=== PATIENT | male | born 1935 | race Caucasian/White ===

== ENCOUNTER 2016-10-29 12:18 | Inpatient (IN) | payer OTHER ==
[~2016-10-29] VITALS: Ht 177.8 cm; Wt 74.5 kg
[~2016-10-29 12:18] MED LIST: ATORVASTATIN CA20 MG PO; AUGMENTIN875 MG PO; CO Q-10100 MG PO; COMBIVENT RESPIM4 GM IH; DALIRESP500 MCG PO; DUONEB 2.5-0.5 M3 ML IH; ECOTRIN325 MG PO; Ecotrin PO; HCTZ PO; IBUPROFEN400 MG PO; IMDUR120 MG PO; IRBESARTAN300 MG PO; ISOSORBIDE MONO60 MG PO; LEVAQUIN500 MG PO; LEVAQUIN750 MG PO; LIPITOR20 MG PO; LISINOPRIL PO; LISINOPRIL40 MG PO; LITE COAT ASPI325 M1 PO; LOPRESSOR50 MG PO; METOPROLOL TART50 MG PO; NITROSTAT0.4 MG SL; PLAVIX75 MG PO; PREDNISONE20 MG PO; PROAIR HFA8.5 GM IH; PROVENTIL,2.5 MG/3 M IH; SPIRIVA1 INHALATI IH; TRAMADOL HCL50 MG PO; Tessalon Perle PO; VIBRAMYCIN100 M2 PO; ZOCOR80 MG PO; Zocor PO
[2016-10-29 13:21] LABS: BASOPHIL COUNT 0.1 K/uL (0-0.1); EOSINOPHIL (%) 18.8 % (0-5); EOSINOPHIL COUNT 1.5 K/uL (0-0.3); HEMATOCRIT 41.5 % (38.0-50.0); IMMATURE GRANULOCYTE (%) 0.3 % (0.0-0.7); INSTRUMENT ABS NEUTROPHIL CT 3.6 K/uL; LYMPHOCYTE COUNT 1.9 K/uL (1.0-2.8); MCHC 31.8 G/DL (30.0-36.0); MCV 87.9 FL (86-99); MEAN PLAT.VOLUME 10.7 uM^3 (9.0-12.4); MONOCYTE COUNT 0.6 K/uL (0-0.8); NEUTROPHIL (%) 46.2 % (45-76); NEUTROPHIL COUNT 3.6 K/uL (1.8-6.4); PLATELET COUNT 163 K/uL (156-360); RBC DIS.WIDTH-CV 15.3 % (11.8-14.6); RBC DIS.WIDTH-SD 49.9 % (39-53); RED BLOOD COUNT 4.72 M/uL (4.00-5.50); WHITE BLOOD COUNT 7.8 K/uL (4.1-10.2)
[2016-10-29 13:32] LABS: CHLORIDE 104 mEq/L (99-109); POTASSIUM 4.5 mEq/L (3.7-5.4); SODIUM 139 mEq/L (136-147)
[2016-10-29 13:34] LABS: GLUCOSE 103 mg/dL (70-99)
[2016-10-29 13:35] LABS: ANION GAP 9 MEQ/L (2-14)
[2016-10-29 13:36] LABS: TOTAL BILIRUBIN 0.4 mg/dL (0.0-1.0)
[2016-10-29 13:37] LABS: ALKALINE PHOSPHATASE 73 IU/L (3-129); GFR ESTIMATE (CALCULATED) 56 mL/min/
[2016-10-29 13:39] LABS: UREA NITROGEN (BUN) 14 mg/dL (9-23)
[2016-10-29 13:45] LABS: TROP-I INTERPRETATION NEGATIVE; TROPONIN-I < 0.01 ng/mL (0.0-0.30)
[2016-10-29 14:19] LABS: INFLUENZA A VIRAL ANTIGEN NEGATIVE; INFLUENZA B VIRAL ANTIGEN NEGATIVE
[2016-10-29] MEDS ORDERED: DUONEB 2.5-0.5 M3 ML AEROSOL (14:19)
[2016-10-29] MEDS ORDERED: BENZONATATE200 MG PO (14:21)
[2016-10-29 17:44] VITALS: BP 160/93
[2016-10-29 20:00] VITALS: BP 136/68
[2016-10-29 21:03] LABS: TROP-I INTERPRETATION NEGATIVE; TROPONIN-I < 0.01 ng/mL (0.0-0.30)
[2016-10-30] VITALS (8 sets, daily range): BP systolic 121–142; BP diastolic 58–79
[2016-10-30 04:30] LABS: HEMATOCRIT 38.9 % (38.0-50.0); MCH 28.2 PG (29.0-34.0); MCHC 32.6 G/DL (30.0-36.0); MCV 86.4 FL (86-99); MEAN PLAT.VOLUME 10.9 uM^3 (9.0-12.4); PLATELET COUNT 153 K/uL (156-360); RBC DIS.WIDTH-CV 15.1 % (11.8-14.6); RBC DIS.WIDTH-SD 48.7 % (39-53); WHITE BLOOD COUNT 6.7 K/uL (4.1-10.2)
[2016-10-30 04:41] LABS: CHLORIDE 101 mEq/L (99-109); POTASSIUM 4.5 mEq/L (3.7-5.4); SODIUM 135 mEq/L (136-147)
[2016-10-30 04:44] LABS: ANION GAP 10 MEQ/L (2-14)
[2016-10-30 04:47] LABS: GFR ESTIMATE (CALCULATED) 56 mL/min/
[2016-10-30 04:50] LABS: GLUCOSE 168 mg/dL (70-99); UREA NITROGEN (BUN) 23 mg/dL (9-23)
[2016-10-30 04:55] LABS: TROP-I INTERPRETATION NEGATIVE; TROPONIN-I < 0.01 ng/mL (0.0-0.30)
[2016-10-30 13:01] LABS: TROP-I INTERPRETATION NEGATIVE; TROPONIN-I 0.01 ng/mL (0.0-0.30)
[2016-10-31 04:22] VITALS: BP 141/69
[2016-10-31 08:00] VITALS: BP 151/71
[2016-10-31 12:00] VITALS: BP 139/68
[2016-10-31 16:00] VITALS: BP 134/63
[2016-10-31 19:56] VITALS: BP 128/61
[2016-10-31 23:25] VITALS: BP 146/68
[2016-11-01 03:33] VITALS: BP 153/70
[2016-11-01 07:17] VITALS: BP 135/69
[2016-11-01 11:21] VITALS: BP 161/70
[2016-11-01 15:19] VITALS: BP 159/73
[2016-11-01 19:45] VITALS: BP 157/72
[2016-11-01 23:28] VITALS: BP 154/74
[2016-11-02 03:26] VITALS: BP 139/71
[2016-11-02 07:21] VITALS: BP 139/71
[2016-11-02 11:12] VITALS: BP 130/63
[2016-11-02 15:09] VITALS: BP 134/65
[2016-11-02 19:41] VITALS: BP 140/66
[2016-11-02 23:40] VITALS: BP 146/71
[2016-11-03 03:57] VITALS: BP 162/83
[2016-11-03 07:03] VITALS: BP 179/83
[2016-11-03 11:05] VITALS: BP 127/60
[2016-11-03 15:01] VITALS: BP 127/60
[2016-11-03 19:38] VITALS: BP 149/81
[2016-11-03 23:22] VITALS: BP 128/60
[2016-11-04] VITALS (7 sets, daily range): BP systolic 120–186; BP diastolic 56–86
[2016-11-05 03:47] VITALS: BP 153/78
[2016-11-05] MEDS ORDERED: PREDNISONE20 MG PO (07:39)
[2016-11-05 08:06] VITALS: BP 166/81
== END 2016-11-05 09:47 | disposition home or self-care (01) | DRG 191 ==
LOC: EME 12:18 → EDOF 15:22 → 4SOUTH 15:22
PROVIDERS: Emergency Medicine; Internal Medicine
DX: J44.1 Chronic obstructive pulmonary disease with (acute) exacerbation (principal); I25.739 Atherosclerosis of nonautologous biological coronary artery bypass graft(s) with unspecified angina pectoris; R09.02 Hypoxemia; G89.29 Other chronic pain; I10 Essential (primary) hypertension; I48.2 Chronic atrial fibrillation; F17.210 Nicotine dependence, cigarettes, uncomplicated; I89.8 Other specified noninfective disorders of lymphatic vessels and lymph nodes; E78.5 Hyperlipidemia, unspecified; I44.7 Left bundle-branch block, unspecified; I70.0 Atherosclerosis of aorta; J98.4 Other disorders of lung; I25.10 Atherosclerotic heart disease of native coronary artery without angina pectoris; C61 Malignant neoplasm of prostate; Z79.02 Long term (current) use of antithrombotics/antiplatelets; Z95.2 Presence of prosthetic heart valve; Z95.5 Presence of coronary angioplasty implant and graft; Z79.01 Long term (current) use of anticoagulants; Z82.49 Family history of ischemic heart disease and other diseases of the circulatory system; Z83.3 Family history of diabetes mellitus
CPT/HCPCS: 71020; 80048; 80053; 83880; 84484; 85025; 85027; 87502; 93005; 94640; 94640 76; 94799; 99202; 99281; 99285; J1650; J2930; J7512

== ENCOUNTER 2016-11-17 15:27 | Inpatient (IN) | payer OTHER ==
[~2016-11-17] VITALS: Ht 177.8 cm; Wt 75.4 kg
[~2016-11-17 15:27] MED LIST changes: +BENZONATATE200 MG PO; +DUONEB 2.5-0.5 M3 ML AEROSOL
[2016-11-17 16:27] LABS: EOSINOPHIL (%) 2.2 % (0-5); EOSINOPHIL COUNT 0.2 K/uL (0-0.3); HEMATOCRIT 35.7 % (38.0-50.0); IMMATURE GRANULOCYTE (%) 0.4 % (0.0-0.7); INSTRUMENT ABS NEUTROPHIL CT 7.4 K/uL; LYMPHOCYTE COUNT 1.1 K/uL (1.0-2.8); MCH 29.1 PG (29.0-34.0); MCHC 32.5 G/DL (30.0-36.0); MCV 89.5 FL (86-99); MEAN PLAT.VOLUME 10.5 uM^3 (9.0-12.4); MONOCYTE (%) 10.7 % (3-12); NEUTROPHIL (%) 75.6 % (45-76); NEUTROPHIL COUNT 7.4 K/uL (1.8-6.4); PLATELET COUNT 147 K/uL (156-360); RBC DIS.WIDTH-CV 15.4 % (11.8-14.6); RBC DIS.WIDTH-SD 51.8 % (39-53); RED BLOOD COUNT 3.99 M/uL (4.00-5.50); WHITE BLOOD COUNT 9.7 K/uL (4.1-10.2)
[2016-11-17 16:34] LABS: CHLORIDE 102 mEq/L (99-109); POTASSIUM 4.8 mEq/L (3.7-5.4); SODIUM 136 mEq/L (136-147)
[2016-11-17 16:36] LABS: GLUCOSE 100 mg/dL (70-99)
[2016-11-17 16:37] LABS: ANION GAP 11 MEQ/L (2-14)
[2016-11-17 16:38] LABS: TOTAL BILIRUBIN 0.7 mg/dL (0.0-1.0)
[2016-11-17 16:40] LABS: ALKALINE PHOSPHATASE 65 IU/L (3-129); GFR ESTIMATE (CALCULATED) 48 mL/min/
[2016-11-17 16:41] LABS: UREA NITROGEN (BUN) 18 mg/dL (9-23)
[2016-11-17 16:43] LABS: LIPASE 16 U/L (1.0-51.0)
[2016-11-17 16:49] LABS: TROP-I INTERPRETATION NEGATIVE; TROPONIN-I 0.08 ng/mL (0.0-0.30)
[2016-11-17 20:29] VITALS: BP 140/61
[2016-11-17 23:20] VITALS: BP 125/63
[2016-11-17 23:42] LABS: TROP-I INTERPRETATION NEGATIVE; TROPONIN-I 0.05 ng/mL (0.0-0.30)
[2016-11-17 23:56] LABS: GLOBULINS 2.7 G/DL (2.3-3.5)
[2016-11-18 03:10] VITALS: BP 105/56
[2016-11-18 06:57] LABS: TROP-I INTERPRETATION NEGATIVE; TROPONIN-I 0.04 ng/mL (0.0-0.30)
[2016-11-18 07:25] LABS: EOSINOPHIL (%) 0 % (0-5); HEMATOCRIT 34.7 % (38.0-50.0); IMMATURE GRANULOCYTE (%) 0.5 % (0.0-0.7); LYMPHOCYTE COUNT 0.4 K/uL (1.0-2.8); MCH 28.4 PG (29.0-34.0); MCHC 32.3 G/DL (30.0-36.0); MCV 88.1 FL (86-99); MEAN PLAT.VOLUME 10.8 uM^3 (9.0-12.4); MONOCYTE (%) 1.1 % (3-12); MONOCYTE COUNT 0.1 K/uL (0-0.8); NEUTROPHIL (%) 91.7 % (45-76); PLATELET COUNT 141 K/uL (156-360); RBC DIS.WIDTH-CV 14.9 % (11.8-14.6); RBC DIS.WIDTH-SD 48.6 % (39-53); RED BLOOD COUNT 3.94 M/uL (4.00-5.50)
[2016-11-18 07:27] LABS: WHITE BLOOD COUNT 6.5 K/uL (4.1-10.2)
[2016-11-18 07:32] LABS: ALKALINE PHOSPHATASE 65 IU/L (3-129); ANION GAP 9 MEQ/L (2-14); CHLORIDE 100 MEQ/L (99-109); GFR ESTIMATE (CALCULATED) 56 mL/min/; POTASSIUM 4.6 MEQ/L (3.7-5.4); SAMPLE HEMOLYSIS CHECK 0; SAMPLE ICTERIC CHECK 0; SAMPLE LIPEMIA CHECK 0; SODIUM 133 MEQ/L (136-147); TOTAL BILIRUBIN 0.5 MG/DL (0.0-1.0); UREA NITROGEN (BUN) 21 mg/dL (9-23)
[2016-11-18 07:35] VITALS: BP 150/70
[2016-11-18 07:37] LABS: GLUCOSE 234 mg/dL (70-99)
[2016-11-18 09:55] LABS: LYME DISEASE SEROLOGY SCREEN NEGATIVE (NEGATIVE); TREPONEMA ANTIBODY NEGATIVE (NEGATIVE)
[2016-11-18 11:15] VITALS: BP 142/69
[2016-11-18 11:41] LABS: ANTI-NUCLEAR AB SCRN/RFLX(ANA) NONREACTIVE (NONREACTIVE)
[2016-11-18 15:40] VITALS: BP 127/66
[2016-11-18 19:34] VITALS: BP 130/70
[2016-11-19 00:23] VITALS: BP 143/70
[2016-11-19 07:28] VITALS: BP 168/74
[2016-11-19 07:44] LABS: ANION GAP 9 MEQ/L (2-14); CHLORIDE 103 MEQ/L (99-109); GFR ESTIMATE (CALCULATED) > 59 mL/min/; GLUCOSE 141 mg/dL (70-99); POTASSIUM 4.8 MEQ/L (3.7-5.4); SAMPLE HEMOLYSIS CHECK 0; SAMPLE ICTERIC CHECK 0; SAMPLE LIPEMIA CHECK 0; SODIUM 136 MEQ/L (136-147); UREA NITROGEN (BUN) 26 mg/dL (9-23)
[2016-11-19 10:06] LABS: INTERNAL CONTROL VALID? YES
[2016-11-19 13:12] LABS: ALBUMIN 3.09 G/DL (3.6-4.9); ALBUMIN PERCENT 52.3 %; ALPHA-1 PERCENT 5.1 %; ALPHA-2 GLOBULIN 0.89 G/DL (0.45-0.85); ALPHA-2 PERCENT 15.1 %; BETA PERCENT 11.7 %; GAMMA PERCENT 15.8 %; SERUM GEL NO. 62-3
[2016-11-19 15:51] VITALS: BP 159/74
[2016-11-19 19:39] VITALS: BP 139/67
[2016-11-20 00:02] VITALS: BP 136/63
[2016-11-20 04:19] VITALS: BP 141/76
[2016-11-20] MEDS ORDERED: LEVOFLOXACIN750 MG PO (07:43)
[2016-11-20] MEDS ORDERED: PREDNISONE20 MG PO (07:45)
[2016-11-20 08:00] VITALS: BP 171/88
[2016-11-20 11:42] VITALS: BP 155/74
== END 2016-11-20 14:30 | disposition home or self-care (01) | DRG 190 ==
LOC: EME 15:27 → EDOF 19:07 → 2EAST 19:07 → EDOF 19:07 → 2EAST 20:24
PROVIDERS: Emergency Medicine; Internal Medicine
DX: J44.1 Chronic obstructive pulmonary disease with (acute) exacerbation (principal); J44.0 Chronic obstructive pulmonary disease with (acute) lower respiratory infection; J18.9 Pneumonia, unspecified organism; N17.9 Acute kidney failure, unspecified; I12.9 Hypertensive chronic kidney disease with stage 1 through stage 4 chronic kidney disease, or unspecified chronic kidney disease; N18.9 Chronic kidney disease, unspecified; I25.118 Atherosclerotic heart disease of native coronary artery with other forms of angina pectoris; E78.00 Pure hypercholesterolemia, unspecified; I44.7 Left bundle-branch block, unspecified; E78.5 Hyperlipidemia, unspecified; G62.9 Polyneuropathy, unspecified; D64.9 Anemia, unspecified; R91.1 Solitary pulmonary nodule; Z95.2 Presence of prosthetic heart valve; Z95.1 Presence of aortocoronary bypass graft; Z85.46 Personal history of malignant neoplasm of prostate; Z87.891 Personal history of nicotine dependence
CPT/HCPCS: 71010; 71020; 80048; 80053; 82607; 82728; 83690; 83880; 84165; 84425 90; 84443; 84484; 85025; 85651; 86038; 86618; 86780; 87070; 87205; 87449; 93005; 94640; 94640 76; 94799; 99202; 99281; 99285; G0378; G8978 GP CI; G8979 GP CI; G8980 GP CI; J1644; J1956; J2930; J7030; J7512

== ENCOUNTER 2017-04-23 21:32 | Inpatient (IN) | payer OTHER ==
[~2017-04-23] VITALS: Ht 177.8 cm; Wt 70.5 kg
[~2017-04-23 21:32] MED LIST changes: +LEVOFLOXACIN750 MG PO
[2017-04-23 22:03] LABS: HEMATOCRIT 40.2 % (38.0-50.0); MCH 28.8 PG (29.0-34.0); MCHC 33.6 G/DL (30.0-36.0); MCV 85.9 FL (86-99); MEAN PLAT.VOLUME 11.1 uM^3 (9.0-12.4); PLATELET COUNT 123 K/uL (156-360); RBC DIS.WIDTH-CV 15.2 % (11.8-14.6); RBC DIS.WIDTH-SD 48.3 % (39-53); RED BLOOD COUNT 4.68 M/uL (4.00-5.50); WHITE BLOOD COUNT 6.8 K/uL (4.1-10.2)
[2017-04-23 22:08] LABS: CHLORIDE 105 mEq/L (99-109)
[2017-04-23 22:09] LABS: SODIUM 141 mEq/L (136-147)
[2017-04-23 22:10] LABS: GLUCOSE 115 mg/dL (70-99)
[2017-04-23 22:12] LABS: ANION GAP 11 MEQ/L (2-14)
[2017-04-23 22:14] LABS: GFR ESTIMATE (CALCULATED) 52 mL/min/
[2017-04-23 22:15] LABS: UREA NITROGEN (BUN) 19 mg/dL (9-23)
[2017-04-23 22:20] LABS: TROP-I INTERPRETATION NEGATIVE; TROPONIN-I 0.04 ng/mL (0.0-0.30)
[2017-04-23 23:41] LABS: BASE EXCESS 0.5 mEq/L (-3 to +3); BICARBONATE 28.4 mEq/L (22-26); CARBOXY HGB 2.4 % (0-5); PCO2 59 mm Hg (35-45); PO2 67 mm Hg (80-100)
[2017-04-23 23:42] LABS: COMMENTS - BLOOD GASES C+; DEVICE NC; O2 FLOW 2 L/MIN; SITE RR; TOTAL RESP RATE 20 resp/min; pH 7.29 (7.35-7.45)
[2017-04-24 01:52] LABS: BASE EXCESS 0 mEq/L (-3 to +3); BICARBONATE 28.9 mEq/L (22-26); CARBOXY HGB 2.1 % (0-5); METHEMOGLOBIN 1.2 % (0-1.5); PCO2 66 mm Hg (35-45); PO2 118 mm Hg (80-100); SITE RR; pH 7.25 (7.35-7.45)
[2017-04-24 01:53] LABS: COMMENTS - BLOOD GASES C+; DEVICE CONT NEB; O2 FLOW 6 L/MIN; TOTAL RESP RATE 12 resp/min
[2017-04-24 03:01] LABS: BASE EXCESS 0.3 mEq/L (-3 to +3); BICARBONATE 27.7 mEq/L (22-26); CARBOXY HGB 2.2 % (0-5); COMMENTS - BLOOD GASES C+; DEVICE MASK VENT; FI02 40 %; MODE SPONT; PCO2 55 mm Hg (35-45); PEEP 5 CM/H20; PO2 77 mm Hg (80-100); PRES. SUPPORT 10 CM/H2O; SITE RR; TOTAL RESP RATE 18 resp/min; pH 7.31 (7.35-7.45)
[2017-04-24 05:19] LABS: CHLORIDE 100 mEq/L (99-109); POTASSIUM 3.7 mEq/L (3.7-5.4); SODIUM 138 mEq/L (136-147)
[2017-04-24 05:22] LABS: ANION GAP 13 MEQ/L (2-14)
[2017-04-24 05:25] LABS: GFR ESTIMATE (CALCULATED) 52 mL/min/
[2017-04-24 05:26] LABS: UREA NITROGEN (BUN) 20 mg/dL (9-23)
[2017-04-24 05:27] LABS: TROP-I INTERPRETATION NEGATIVE; TROPONIN-I 0.04 ng/mL (0.0-0.30)
[2017-04-24 05:34] LABS: GLUCOSE 195 mg/dL (70-99)
[2017-04-24 06:35] VITALS: BP 133/63
[2017-04-24 07:52] VITALS: BP 115/73
[2017-04-24 12:16] LABS: TROP-I INTERPRETATION NEGATIVE; TROPONIN-I 0.03 ng/mL (0.0-0.30)
[2017-04-24 12:35] VITALS: BP 107/67
[2017-04-24 16:18] VITALS: BP 116/58
[2017-04-24 19:30] VITALS: BP 91/51
[2017-04-25] VITALS (7 sets, daily range): BP systolic 90–125; BP diastolic 51–59
[2017-04-25 06:42] LABS: MCH 27.8 PG (29.0-34.0); MCHC 31.3 G/DL (30.0-36.0); MCV 89.1 FL (86-99); MEAN PLAT.VOLUME 12.1 uM^3 (9.0-12.4); PLATELET COUNT 137 K/uL (156-360); RBC DIS.WIDTH-CV 15.7 % (11.8-14.6); RBC DIS.WIDTH-SD 51.4 % (39-53); RED BLOOD COUNT 4.49 M/uL (4.00-5.50)
[2017-04-25 08:55] LABS: BASE EXCESS 3.8 mEq/L (-3 to +3); BICARBONATE 30.9 mEq/L (22-26); CARBOXY HGB 1.8 % (0-5); METHEMOGLOBIN 1.9 % (0-1.5); PCO2 56 mm Hg (35-45); pH 7.35 (7.35-7.45)
[2017-04-25 08:56] LABS: COMMENTS - BLOOD GASES A+C+; DEVICE NC; O2 FLOW 4 L/MIN; PO2 47 mm Hg (80-100); SITE RR; TOTAL RESP RATE 20 resp/min
[2017-04-26 03:20] VITALS: BP 134/63
[2017-04-26 05:24] LABS: MCH 27.9 PG (29.0-34.0); MCHC 31.8 G/DL (30.0-36.0); MCV 87.8 FL (86-99); MEAN PLAT.VOLUME 10.8 uM^3 (9.0-12.4); PLATELET COUNT 137 K/uL (156-360); RBC DIS.WIDTH-CV 15.4 % (11.8-14.6); RBC DIS.WIDTH-SD 49.8 % (39-53); RED BLOOD COUNT 4.33 M/uL (4.00-5.50); WHITE BLOOD COUNT 15.2 K/uL (4.1-10.2)
[2017-04-26 05:50] LABS: ALKALINE PHOSPHATASE 48 IU/L (3-129); ANION GAP 6 MEQ/L (2-14); CHLORIDE 102 MEQ/L (99-109); GFR ESTIMATE (CALCULATED) 56 mL/min/; GLUCOSE 134 mg/dL (70-99); SAMPLE HEMOLYSIS CHECK 0; SAMPLE ICTERIC CHECK 0; SAMPLE LIPEMIA CHECK 0; SODIUM 138 MEQ/L (136-147); TOTAL BILIRUBIN 0.3 MG/DL (0.0-1.0)
[2017-04-26 05:54] LABS: POTASSIUM 4.7 MEQ/L (3.7-5.4); UREA NITROGEN (BUN) 53 mg/dL (9-23)
[2017-04-26 08:00] VITALS: BP 152/67
[2017-04-26 12:55] VITALS: BP 121/60
[2017-04-26 16:31] VITALS: BP 136/75
[2017-04-26 18:56] VITALS: BP 128/76
[2017-04-27 01:25] VITALS: BP 164/72
[2017-04-27 05:38] LABS: HEMATOCRIT 38.1 % (38.0-50.0); MCH 29.2 PG (29.0-34.0); MCHC 33.6 G/DL (30.0-36.0); MCV 86.8 FL (86-99); PLATELET COUNT 141 K/uL (156-360); RBC DIS.WIDTH-CV 15.4 % (11.8-14.6); RED BLOOD COUNT 4.39 M/uL (4.00-5.50); WHITE BLOOD COUNT 13.3 K/uL (4.1-10.2)
[2017-04-27 06:13] LABS: ALKALINE PHOSPHATASE 46 IU/L (3-129); ANION GAP 8 MEQ/L (2-14); CHLORIDE 102 MEQ/L (99-109); GFR ESTIMATE (CALCULATED) > 59 mL/min/; POTASSIUM 4.3 MEQ/L (3.7-5.4); SAMPLE HEMOLYSIS CHECK 0; SAMPLE ICTERIC CHECK 0; SAMPLE LIPEMIA CHECK 0; SODIUM 138 MEQ/L (136-147); TOTAL BILIRUBIN 0.3 MG/DL (0.0-1.0); UREA NITROGEN (BUN) 54 mg/dL (9-23)
[2017-04-27 06:17] LABS: GLUCOSE 100 mg/dL (70-99)
[2017-04-27 08:52] VITALS: BP 169/86
[2017-04-27 12:00] VITALS: BP 144/82
[2017-04-27 15:53] VITALS: BP 167/86
[2017-04-27 20:30] VITALS: BP 130/73
[2017-04-28 01:44] VITALS: BP 158/74
[2017-04-28 04:30] VITALS: BP 150/78
[2017-04-28 05:37] LABS: HEMATOCRIT 40.3 % (38.0-50.0); MCH 27.8 PG (29.0-34.0); MCHC 32.5 G/DL (30.0-36.0); MCV 85.4 FL (86-99); MEAN PLAT.VOLUME 10.8 uM^3 (9.0-12.4); PLATELET COUNT 148 K/uL (156-360); RBC DIS.WIDTH-CV 15.1 % (11.8-14.6); RBC DIS.WIDTH-SD 47.8 % (39-53); RED BLOOD COUNT 4.72 M/uL (4.00-5.50); WHITE BLOOD COUNT 8.6 K/uL (4.1-10.2)
[2017-04-28 06:34] LABS: ALKALINE PHOSPHATASE 45 IU/L (3-129); ANION GAP 7 MEQ/L (2-14); CHLORIDE 103 MEQ/L (99-109); GFR ESTIMATE (CALCULATED) > 59 mL/min/; GLUCOSE 87 mg/dL (70-99); POTASSIUM 4.1 MEQ/L (3.7-5.4); SAMPLE HEMOLYSIS CHECK 0; SAMPLE ICTERIC CHECK 0; SAMPLE LIPEMIA CHECK 0; SODIUM 139 MEQ/L (136-147); UREA NITROGEN (BUN) 40 mg/dL (9-23)
[2017-04-28 06:35] LABS: TOTAL BILIRUBIN 0.4 MG/DL (0.0-1.0)
[2017-04-28] MEDS ORDERED: PREDNISONE20 MG PO (06:55)
[2017-04-28 08:51] VITALS: BP 153/73
== END 2017-04-28 09:30 | disposition home or self-care (01) | DRG 189 ==
LOC: EME → EDBD 21:32 → EME 21:32 → EDOF 04-24 04:15 → 4EAST 04-24 04:15 → ENRESERV 04-24 04:16 → 4EAST 04-24 06:13
PROVIDERS: Emergency Medicine; Hospitalist; Internal Medicine; Internal Medicine Pulmonary Disease
PROC: 5A09357 Assistance with Respiratory Ventilation, Less than 24 Consecutive Hours, Continuous Positive Airway Pressure (ICD-10-PCS; principal; 2017-04-24)
DX: J96.01 Acute respiratory failure with hypoxia (principal); J44.1 Chronic obstructive pulmonary disease with (acute) exacerbation; N17.9 Acute kidney failure, unspecified; E87.2 Acidosis; J44.0 Chronic obstructive pulmonary disease with (acute) lower respiratory infection; Z99.81 Dependence on supplemental oxygen; J20.9 Acute bronchitis, unspecified; J96.02 Acute respiratory failure with hypercapnia; S61.213A Laceration without foreign body of left middle finger without damage to nail, initial encounter; E78.00 Pure hypercholesterolemia, unspecified; I10 Essential (primary) hypertension; I25.10 Atherosclerotic heart disease of native coronary artery without angina pectoris; I44.7 Left bundle-branch block, unspecified; R73.03 Prediabetes; D69.6 Thrombocytopenia, unspecified; F17.200 Nicotine dependence, unspecified, uncomplicated; W45.8XXA Other foreign body or object entering through skin, initial encounter; Y93.89 Activity, other specified; Z95.1 Presence of aortocoronary bypass graft; Z95.2 Presence of prosthetic heart valve; Z95.5 Presence of coronary angioplasty implant and graft; Z85.46 Personal history of malignant neoplasm of prostate; Z83.3 Family history of diabetes mellitus; Z79.02 Long term (current) use of antithrombotics/antiplatelets; Z79.82 Long term (current) use of aspirin
CPT/HCPCS: 36600; 71010; 80048; 80053; 82803; 83880; 84484; 85027; 87070; 87205; 93005; 93306; 94002; 94640; 94640 76; 94644; 94645; 94664; 94760; 94799; 99202; 99281; 99285; J0696; J1940; J2930; J7050; J7512; J7644